=== PATIENT | female | born 1980 | race Caucasian/White ===

== ENCOUNTER 2018-11-26 14:46 | Outpatient (CLI) | payer MEDICAID | END 2018-11-26 18:17 | disposition home or self-care (01) | LOC: OBT 14:46 → L-D 14:46 → OBT 18:17 | DX: O24.410 Gestational diabetes mellitus in pregnancy, diet controlled (principal); Z3A.37 37 weeks gestation of pregnancy | CPT/HCPCS: Z7500 ==

== ENCOUNTER 2018-12-10 09:46 | Inpatient (IN) | payer MEDICAID ==
[2018-12-10] MEDS ORDERED: IBUPROFEN 600 MG TAB PO (12:00)
[2018-12-10] MEDS ORDERED: LIDOCAINE 1% (MPF) 30 ML INJ INJ (12:00)
[2018-12-10] MEDS ORDERED: METHYLERGONOVINE 0.2 MG INJ IM (12:00)
[2018-12-10] MEDS ORDERED: OXYTOCIN 30 UNITS/LR 500 ML IV (12:00)
[2018-12-10] MEDS ORDERED: CARBOPROST 250 MCG INJ IM (12:00)
[2018-12-10] MEDS ORDERED: OXYCODONE/ASPIRIN (4.88/325) TAB PO (12:00)
[2018-12-10] MEDS ORDERED: BUTORPHANOL 2 MG INJ IV (12:00)
[2018-12-10] MEDS ORDERED: MISOPROSTOL 200 MCG TAB PR (12:00)
[2018-12-10] MEDS: LACTATED RINGER'S 1,000 ML IV ×2 (12:20→23:50)
[2018-12-10] MEDS: MISOPROSTOL 50 MCG CAPSULE PO ×2 (12:43→17:03)
[2018-12-10 12:55] LABS: ADD MAN DIFF? NO
[2018-12-10] MEDS: AMPICILLIN 2 GM/NS (PMX) 100 ML IV (12:57)
[2018-12-10 13:00] LABS: WHITE BLOOD COUNT 8.8 10^3/ul (4.8-10.8)
[2018-12-10 13:00] LABS: BASOPHILS % 0.5 % (0.0-2.0); EOSINOPHILS % 0.3 % (0.0-7.0); HEMATOCRIT 39.1 % (37.0-47.0); HEMOGLOBIN 12.8 g/dl (12.0-16.0); LYMPHOCYTES # 1.9 10^3/ul (0.8-2.9); LYMPHOCYTES % 21.5 % (15.0-51.0); MEAN CORPUSCULAR HEMOGLOBIN 30.3 pg (29.0-33.0); MEAN CORPUSCULAR HGB CONC 32.7 g/dl (32.0-37.0); MEAN CORPUSCULAR VOLUME 92.4 fl (82.0-101.0); MEAN PLATELET VOLUME 12.3 fl (7.4-10.4); MONOCYTE # 0.5 10^3/ul (0.3-0.9); MONOCYTES % 5.2 % (0.0-11.0); NEUTROPHIL # 6.4 10^3/ul (1.6-7.5); NEUTROPHILS % 72.2 % (39.0-77.0); PLATELET COUNT 242 10^3/UL (140-415); RED BLOOD COUNT 4.23 10^6/ul (4.20-5.40); RED CELL DISTRIBUTION WIDTH 13.9 % (11.5-14.5)
[2018-12-10 13:18] LABS: GLUCOSE 70 mg/dl (70-220)
[2018-12-10 13:38] LABS: INR 0.95; PROTIME 12.8 Sec (11.9-14.9)
[2018-12-10 13:39] LABS: PARTIAL THROMBOPLASTIN TIME 28.9 Sec (23.0-35.0)
[2018-12-10 13:50] LABS: HEPATITIS B SURFACE ANTIGEN NEGATIVE (NEGATIVE)
[2018-12-10] MEDS: DEXTROSE 5%-LR 1,000 ML IV (14:04)
[2018-12-10 16:14] LABS: RAPID PLASMA REAGIN NONREACTIVE (NR)
[2018-12-10] MEDS ORDERED: AMPICILLIN 1 GM/NS (PMX) 50 ML IV (17:00)
[2018-12-11] MEDS: OXYTOCIN 30 UNITS/LR 500 ML IV ×3 (00:51→20:09)
[2018-12-11] MEDS: DEXTROSE 5%-LR 1,000 ML IV ×2 (03:31→11:12)
[2018-12-11] MEDS: MISOPROSTOL 50 MCG CAPSULE PO ×3 (04:00→22:25)
[2018-12-11] MEDS: LACTATED RINGER'S 1,000 ML IV ×2 (18:14→19:00)
[2018-12-11] MEDS ORDERED: ZOLPIDEM 5 MG TAB PO (18:30)
[2018-12-11] MEDS ORDERED: KETOROLAC 30 MG INJ IV (18:30)
[2018-12-11] MEDS ORDERED: HYDROmorphONE 0.5 MG/0.5 ML SYG IV ×2 (18:30)
[2018-12-11] MEDS ORDERED: DIPHENHYDRAMINE 50 MG INJ IV (18:30)
[2018-12-11] MEDS ORDERED: NALOXONE (0.4 MG/ML) INJ IV (18:30)
[2018-12-11] MEDS ORDERED: FENTAnyl 2MCG/ML-ROPIV 0.2% 100 ML BAG EPI (18:30)
[2018-12-11] MEDS ORDERED: ONDANSETRON 4 MG INJ IV (18:30)
[2018-12-11] MEDS: LACTATED RINGER'S 1,000 ML IV* (20:16)
[2018-12-11] MEDS ORDERED: MISOPROSTOL 200 MCG TAB PR (20:30)
[2018-12-11] MEDS ORDERED: HYDROCODONE/APAP (5/325) TAB PO ×2 (20:30)
[2018-12-11] MEDS ORDERED: OXYTOCIN 30 UNITS/LR 500 ML IV (20:30)
[2018-12-11] MEDS ORDERED: METHYLERGONOVINE 0.2 MG INJ IM (20:30)
[2018-12-11] MEDS ORDERED: DIBUCAINE 1% 30 GM OINT TOP (20:30)
[2018-12-11] MEDS ORDERED: CARBOPROST 250 MCG INJ IM (20:30)
[2018-12-12] MEDS: WITCH HAZEL/GLYCERIN PAD PR (00:01)
[2018-12-12] MEDS: IBUPROFEN 600 MG TAB PO ×4 (00:01→18:15)
[2018-12-12] MEDS: BENZOCAINE 20% 56 ML SPRAY TOP (00:02)
[2018-12-12] MEDS: OXYTOCIN 30 UNITS/LR 500 ML IV (00:40)
[2018-12-12] MEDS: LACTATED RINGER'S 1,000 ML IV* ×2 (04:16→12:16)
[2018-12-12 08:02] LABS: ADD MAN DIFF? NO
[2018-12-12 08:08] LABS: BASOPHILS % 0.3 % (0.0-2.0); EOSINOPHILS # 0.1 10^3/ul (0.0-0.5); EOSINOPHILS % 0.4 % (0.0-7.0); HEMATOCRIT 36.9 % (37.0-47.0); HEMOGLOBIN 12.3 g/dl (12.0-16.0); LYMPHOCYTES # 1.9 10^3/ul (0.8-2.9); MEAN CORPUSCULAR HEMOGLOBIN 30.6 pg (29.0-33.0); MEAN CORPUSCULAR HGB CONC 33.3 g/dl (32.0-37.0); MEAN CORPUSCULAR VOLUME 91.8 fl (82.0-101.0); MEAN PLATELET VOLUME 11.8 fl (7.4-10.4); MONOCYTE # 0.7 10^3/ul (0.3-0.9); MONOCYTES % 5.7 % (0.0-11.0); NEUTROPHIL # 9.3 10^3/ul (1.6-7.5); NEUTROPHILS % 77.2 % (39.0-77.0); PLATELET COUNT 238 10^3/UL (140-415); RED BLOOD COUNT 4.02 10^6/ul (4.20-5.40); RED CELL DISTRIBUTION WIDTH 13.6 % (11.5-14.5)
[2018-12-12] MEDS: LANOLIN HPA 1 PKT TOP (11:39)
[2018-12-13] MEDS: IBUPROFEN 600 MG TAB PO ×3 (05:33→11:52)
[2018-12-13] MEDS: MEASLES,MUMPS,RUBELLA VACCINE INJ SC* (09:00)
[2018-12-13] MEDS: VARICELLA VACCINE LIVE/PF 1,350 UNIT/0.5 ML ML SC* (09:00)
[2018-12-13] MEDS: DIPHTH/TET/ACEL PERTUSS (ADULT) 0.5 ML VIAL IM* (11:30)
== END 2018-12-13 15:10 | disposition home or self-care (01) | DRG 807 ==
LOC: L-D 09:46 → PP1 12-11 21:46
PROVIDERS: Obstetrics & Gynecology
PROC: 10E0XZZ Delivery of Products of Conception, External Approach (ICD-10-PCS; principal; 2018-12-11)
PROC: 0KQM0ZZ Repair Perineum Muscle, Open Approach (ICD-10-PCS; 2018-12-11)
DX: O24.429 Gestational diabetes mellitus in childbirth, unspecified control (principal); O70.1 Second degree perineal laceration during delivery; O69.81X0 Labor and delivery complicated by cord around neck, without compression, not applicable or unspecified; Z3A.39 39 weeks gestation of pregnancy; Z37.0 Single live birth
CPT/HCPCS: 62322; 82947; 82962; 85025; 85610; 85730; 86592; 86850; 86900; 86901; 87340; 90715; 90716; 99464